=== PATIENT | female | born 1985 | race Caucasian/White ===

== ENCOUNTER 2025-01-21 02:15 | Emergency (ER) | payer SELFPAY ==
[2025-01-21 02:17] VITALS: BP 187/113; PULSE 98; RESP 16; TEMP 36.6; O2SAT 100; BMI 21.4
--- OUTSIDE RECORDS SUMMARY | 2025-01-21 02:25 | XMS_ITS | Clinical Summary ---
Author Organization [facility] Address [address] [place] [address] Phone Care Team Providers Care Brainer Name Role Phone Shara Reynolds MD Primary Care Provider [phone] Allergies No known active allergies Medications FLUoxetine (PROzac) 40 mg capsule Take 40 mg by mouth daily. Active ciprofloxacin HCl (CILOXAN) 0.3 % solution Administer 1 Drop in left eye every 2 hours. while awake 10 mL Active Active Problems Problem Noted Date Diagnosed Date Cigarette dependence 06/13/2015 Family History Medical History Relation Name Comments Breast Cancer Maternal Grandmother Lung Cancer Paternal Grandfather Relation Name Status Comments Maternal Grandmother Paternal Grandfather Social History Tobacco Use Types Packs/Day Years Used Date Smoking Tobacco: Former Cigarettes Smokeless Tobacco: Never Alcohol Use Standard Drinks/Week Comments Not Currently 0 (1 standard drink = 0.6 oz pur e alcohol) Comments Unknown Sex and Gender Information Value Date Recorded Sex Assigned at Not on file 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 Gender Identity Not on file Sexual Orientation Not on file Last Filed Vital Signs Vital Sign Reading Time Taken Comments Blood Pressure 133/88 12/21/2021 10:30 AM CDT Pulse 56 12/21/2021 10:30 AM CDT Temperature 36.4 C (97.5 F) 12/21/2021 10:30 AM CDT Respiratory Rate 14 12/21/2021 10:30 AM CDT Oxygen Saturation 99% 12/21/2021 10:30 AM CDT Inhaled Oxygen Concentration - - Weight 59.6 kg (131 lb 6.4 oz) 12/21/2021 10:02 AM CDT Height 162.6 cm (5' 4 ) 12/21/2021 10:02 AM CDT Body Mass Index 22.55 12/21/2021 10:02 AM CDT Plan of Treatment Health Maintenance Due Date Last Done Comments HPV VACCINES (1 - 3-dose series) 1998 DTAP/TDAP/TD VACCINES (1 - Tdap) 2002 HEPATITIS B VACCINES (1 of 3 - 19+ 3-dose series) 07/2001 HPV/Cotest (21-29) 2004 CERVICAL CANCER SCREENING 2013 HPV/Cotest (30-65) 2013 PAP SMEAR 2013 BREAST CANCER SCREENING 07/25/2024 07/25/2023 INFLUENZA VACCINE (#1) 2025 Procedures Procedure Name Priority Date/Time Associated Diagnosis Comments MAMMO 3D LING SCREEN BILAT W OR WO CAD Routine 07/25/2023 12:30 PM PLANT MAINTENANCE MECHANIC Breast cancer screening by mammogram from Last 3 Months or Most Recently Relevant to Health Maintenance Results * MAMMO 3D LING SCREEN BILAT W OR WO CAD (07/25/2023 12:30 PM PLANT MAINTENANCE MECHANIC) Anatomical Region Laterality Modality Breast Bilateral Mammography, Dig ital Radiography Impressions 07/31/2023 1:55 PM PLANT MAINTENANCE MECHANIC : No mammographic evidence of malignancy. BI-RADS ASSESSMENT: 1 - Negative RECOMMENDATION: Routine annual screening mammography. Narrative 07/31/2023 1:55 PM PLANT MAINTENANCE MECHANIC EXAM: MAMMO SCRN BILAT 3D LING W OR WO CAD INDICATION: Screening COMPARISON: This is the patient's Baseline Mammogram. No comparisons were made when reading this study. BREAST COMPOSITION: There are scattered areas of fibroglandular density. FINDINGS: RIGHT BREAST: There are no suspicious masses, calcifications, or areas of architectural distortion. LEFT BREAST: There are no suspicious masses, calcifications, or areas of architectural distortion. us Mera Melendez OFFSET PRINTING OPERATOR MAMMO ORDERABLES Final Res ult from Last 3 Months or Most Recently Relevant to Health Maintenance Insurance [facility] MEDICAID [facility] MEDICAID [facility] Member Subscriber Plan / Payer (Ef fective 2022-Present) Name:Karla ENCARNACION Relation to Subscriber:Self Name:Karla ENCARNACION Payer ID:Not on file Group ID:Not on file Type:Other Address: [address] MEDICAID Care Teams Brainer Relationship Specialty Start Date End Date Shara Reynolds MD [address] [place] [id number] PCP - General Family Practice 12/21/21
--- OUTSIDE RECORDS SUMMARY | 2025-01-21 02:25 | XMS_ITS | Clinical Summary ---
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 Gender Identity Not on file Sexual Orientation Not on file Last Filed Vital Signs Vital Sign Reading Time Taken Comments Blood Pressure 137/89 06/22/2020 9:15 PM [employer] CONCRETE PLANT WORKER Pulse - - Temperature 37.2 C (98.9 F) 06/22/2020 6:45 PM [employer]CRETE PLANT WORKER Respiratory Rate 16 06/22/2020 9:15 PM [employer] AND CONCRETE PLANT WORKER Oxygen Saturation 99% 06/22/2020 9:15 PM [employer] CONCRETE PLANT WORKER Inhaled Oxygen Concentration - - Weight - - Height 162.6 cm (5' 4 ) 06/22/2020 6:45 PM [employer]EMENT [employer] CONCRETE PLANT WORKER Body Mass Index - - Plan of Treatment Health Maintenance Due Date Last Done Comments Annual Wellness 1983 Varicella Vaccines (1 of 2 - 13+ 2-dose series) 1996 Hepatitis B Vaccines (1 of 3 - 19+ 3-dose series) 2002 Td, Tdap Vaccines Adult 2002 Pap Smear 2004 HPV Vaccines (1 - 3-dose SCD M series) 2010 Mammogram 2023 Influenza Vaccination (#1) 2025 HIB Vaccines Aged Out No longer eligi ble based on patient's age to complete this topic Hepatitis A Vaccines Aged Out No long er eligible based on patient's age to complete this topic IPV Vaccines Aged Out No longer eligi ble based on patient's age to complete this topic Meningococcal Vaccines Aged Out No lo nger eligible based on patient's age to complete this topic Pneumococcal Vaccine: Pediat rics (0 to 5 Years) and At-Risk Patients (6 to 49 Years) Aged Out No longer eligible b ased on patient's age to complete this topic RSV Mab Nirsevimab (Beyfortu s) <20 months Aged Out No longer eligible b ased on patient's age to complete this topic Rotavirus Vaccines Aged Out No longer eligible based on patient's age to complete this topic Insurance [facility] Care Teams Sack Lifter Relationship Specialty Start Date End Date Shellie Glover FNP PCP - General Nurse Practitioner 06/22/20
[2025-01-21] MEDS: lidocaine-epi 1% 20 mL INJ INJECTION (02:38)
--- NOTE | 2025-01-21 02:48 | W.ED.SKABFB ---
HPI - Skin/Abscess/Foreign Bdy General: Chief complaint: Skin/Abscess/Foreign Body Stated complaint: Left Arm Fishing hook Time Seen by Provider: 01/21/25 02:24 History of Present Illness: 39-year-old female who arrives to the emergency room with a fishhook in her left arm. She is up-to-date on her tetanus Related Data Home Medications ?Medication ?Instructions ?Recorded ?Confirmed acamprosate 333 mg tablet,delayed 333 mg PO BID 08/30/20 release amlodipine 5 mg tablet 5 mg PO DAILY 08/30/20 bupropion HCl 150 mg 24 hr tablet, 150 mg PO QAM 08/30/20 extended release hydroxyzine HCl 50 mg tablet 50 mg PO TID 08/30/20 naltrexone 50 mg tablet 25 mg PO DAILY 08/30/20 Previous Rx's ?Medication ?Instructions ?Recorded cephalexin 500 mg capsule 500 mg PO BID 5 days #10 caps 01/21/25 Allergies Allergy/AdvReac Type Severity Reaction Status Date / Time No Known Allergies Allergy Verified 08/30/20 13:23 Review of Systems Narrative: Constitutional symptoms: Negative except as documented in HPI. Skin symptoms: Negative except as documented in HPI. Eye symptoms: Negative except as documented in HPI. ENMT symptoms: Negative except as documented in HPI. Respiratory symptoms: Negative except as documented in HPI. Cardiovascular symptoms: Negative except as documented in HPI. Gastrointestinal symptoms: Negative except as documented in HPI. Genitourinary symptoms: Negative except as documented in HPI. Musculoskeletal symptoms: Negative except as documented in HPI. Neurologic symptoms: Negative except as documented in HPI. Psychiatric symptoms: Negative except as documented in HPI. Endocrine symptoms: Negative except as documented in HPI. [facility] ED PFSH: Medical History (Updated 01/21/25 @ 02:48 by Lexie Almanzar MD) HTN (hypertension) Congestive heart failure Family History Grandmother Myocardial infarction Stroke CAD (coronary artery disease) Grandfather Diabetes Social History Smoking and tobacco/nicotine status: current every day tobacco/nicotine user cigarettes Alcohol intake: former Former alcohol use details: last drink 1 month prior Substance/Drug Use: former Date of last use: 1 month prior Physical Exam Narrative: EXAM NARRATIVE: General: Alert, no acute distress. Skin: warm and dry. Large fishhook in the left posterior arm just above the elbow Head: Normocephalic Neck: Trachea midline Eye: Extraocular movements are intact. Ears, nose, mouth and throat: Oral mucosa moist Respiratory: Respirations are non-labored Musculoskeletal: Normal ROM Gastrointestinal: Abdomen does not appear distended Neurological: Alert and oriented, No focal neurological deficit observed. Psychiatric: Cooperative, appropriate mood & affect. Course Vital Signs: Vital signs: Vital Signs Temperature 97.8 F 01/21/25 02:17 Pulse Rate 98 01/21/25 02:17 Respiratory Rate 16 01/21/25 02:17 Blood Pressure 187/113 01/21/25 02:17 Pulse Oximetry 100 01/21/25 02:17 Oxygen Delivery Me thod Room Air 01/21/25 02:17 MDM - Skin/Abscess/Foreign Bdy Medicial Decision Making Foreign body removal Time: 2:45 AM Confirmed correct: Patient, procedure, sight. Consent: Patient Indication: foreign body/fishhook Location: Left arm. Pre procedure exam: Sensory intact, Procedural sedation: (repeat): Lidocaine locally Monitoring: none Technique: traction Post-procedure exam: _ foreign body removed. Patient tolerated: Well Complications: None Performed by (rpt): Self Assessment and plan: [place] in arm - Discharged home - Discussed plan with patient. Answered any questions. - Evaluation and treatment of this problem were appropriate in the emergency setting. No radiology studies performed this visit Discharge Plan Discharge Patient Disposition: Home Clinical Impression: Fish hook in upper arm Condition: Stable Prescriptions: New cephalexin 500 mg capsule 500 mg PO BID 5 Days Qty: 10 0RF No Action amlodipine 5 mg tablet 5 mg PO DAILY bupropion HCl 150 mg tablet extended release 24 hr 150 mg PO QAM acamprosate 333 mg tablet,delayed release (DR/EC) 333 mg PO BID Rx Instructions: administer with mid-day and evening meals naltrexone 50 mg tablet 25 mg PO DAILY hydroxyzine HCl 50 mg tablet 50 mg PO TID Discharge Orders: Discharge ED (Routine); Ordered 01/21/25 Ordered By: Lexie Almanzar Referrals: Shellie Glover, [facility] [Primary Care Provider, Nurse Practitioner] Discharge Diet: Usual diet Discharge Activity: Increase activity as tolerated Patient Instructions: [place] Injuries, Opioid Safety, Pain Management, Patient Portal & Daisy Instructions Activity Restrictions/Additional Instructions: [facility]. You have been screened and evaluated and felt safe for discharge. Health conditions do change or evolve sometimes and as such it is important that you follow up with your Primary Doctor to be re checked, 3-5 days is a general good time frame for follow up. You are always welcome to return to the ED for re assessment if your symptoms are worsening or you have new concerns Print Language: Urdu Coding Level of Care Code ED [place] for Marcial Calderon
== END 2025-01-21 03:00 | disposition home or self-care (01) ==
PROVIDERS: Emergency Provider Emergency Medicine; PCP Nurse Practitioner Family
DX: S41.142A Puncture wound with foreign body of left upper arm, initial encounter (principal); W45.8XXA Other foreign body or object entering through skin, initial encounter; F17.210 Nicotine dependence, cigarettes, uncomplicated; I11.0 Hypertensive heart disease with heart failure; I50.9 Heart failure, unspecified
CPT/HCPCS: 99283; J9999